=== PATIENT | female | born 1990 | race Caucasian/White ===

== ENCOUNTER 2019-07-03 21:52 | Emergency (ER) | payer SELFPAY ==
[2019-07-03 22:36] VITALS: TEMP 93
[2019-07-03 23:09] VITALS: O2SAT 98
[2019-07-04 00:17] VITALS: BP 127/90
--- NOTE | 2019-07-04 00:45 | ED.PDOC ---
History of Present Illness - General Chief Complaint: Back Pain or Injury Stated Complaint: RIGHT SIDED BACK PAIN Time Seen by Provider: 07/03/19 23:51 Source: patient Exam Limitations: no limitations - History of Present Illness Initial Comments: STARTED TONIGHT, R BACK (FLANK) PAIN. RADIATES LATERALLY. SHARP PAINS, INTERMITTENT LASTING 5 MIN ON, 5 MIN OFF. Severity: moderate Improving Factors: nothing Worsening Factors: nothing Associated Symptoms: denies symptoms Allergies/Adverse Reactions: Allergies NO KNOWN ALLERGY Allergy (Verified 06/09/16 18:46) Home Medications: Ambulatory Orders Sulfa/Trimeth 800/160 (Ds) Tab [Bactrim DS Tab] 1 unit PO BID #6 tab 07/04/19 Review of Systems - Review of Systems Constitutional: Denies: chills, fever EENTM: States: no symptoms reported Respiratory: States: no symptoms reported Cardiology: States: no symptoms reported Gastrointestinal/Abdominal: Denies: abdominal pain, nausea, vomiting Genitourinary: Denies: dysuria, frequency Musculoskeletal: States: no symptoms reported Skin: States: no symptoms reported Neurological: States: no symptoms reported Endocrine: States: no symptoms reported Hematologic/Lymphatic: States: no symptoms reported All other Systems: Reviewed and Negative Past Medical History (General) - Patient Medical History Hx Seizures: No Hx Stroke: No Hx Dementia: No Hx Asthma: No Hx of COPD: No Hx Cardiac Disorders: No Hx Congestive Heart Failure: No Hx Pacemaker: No Hx Hypertension: No Hx Thyroid Disease: No Hx Diabetes: No Hx Gastroesophageal Reflux: No Hx Renal Disease: Yes - stones Hx Cancer: No Hx of HIV: No Hx Hepatitis C: No Hx MRSA: No - Vaccination History Hx Tetanus, Diphtheria Vaccination: No Hx Influenza Vaccination: No Hx Pneumococcal Vaccination: No Immunizations Up to Date: No - Social History Hx Tobacco Use: No Hx Alcohol Use: Yes Hx Substance Use: No Hx Substance Use Treatment: No Hx Depression: No - Female History Patient is a Female of Child Bearing Age (10 -59 yrs old): Yes Patient : No - Triage Comment ED Triage Comment: states Dr Whitfield told her she needed her gallbladder removed, but can not afford it. Has pain to gall bladder area as similar in past Family Medical History - Family History Mother Family History: Unknown Living Status: Unknown Physical Exam - Physical Exam General Appearance: Alert, No apparent distress Eye Exam: bilateral normal Ears, Nose, Throat: hearing grossly normal, normal ENT inspection Neck: non-tender, full range of motion Respiratory: chest non-tender, lungs clear Cardiovascular/Chest: normal peripheral pulses, regular rate, rhythm Gastrointestinal/Abdominal: normal bowel sounds, non tender, soft, no organomegaly, no pulsatile mass Back Exam: CVA tenderness (R), CVA tenderness (L), other - BL CVA TTP, R GREATER THAN L. Extremity: normal range of motion, normal inspection Neurologic: alert, normal mood/affect Skin Exam: normal color, warm/dry Lymphatic: no adenopathy Progress - Progress Progress: 07/04/19 00:48 CBC AND CMP NEG. UA = UTI. MILD KETONES. RX'D BACTRIM. F/U W/ PCP. BACK IS NTTP. IT'S THE FLANKS (UTI). Departure - Departure Clinical Impression: Flank pain, acute UTI (urinary tract infection) Qualifiers: Urinary tract infection type: acute cystitis Hematuria presence: without hematuria Qualified Code(s): N30.00 - Acute cystitis without hematuria Disposition: Discharge to Home or Self Care Condition: Good Departure Forms: ED Discharge - Pt. Copy, Patient Portal Self Enrollment Instructions: Urinary Tract Infection, Adult (DC) Diet: resume usual diet Activity: increase activity as tolerated Referrals: Nelia Dukes NP [Primary Care Provider] - 1-2 Weeks Prescriptions: Sulfa/Trimeth 800/160 (Ds) Tab [Bactrim DS Tab] 1 unit PO BID #6 tab Home Medications: Ambulatory Orders Sulfa/Trimeth 800/160 (Ds) Tab [Bactrim DS Tab] 1 unit PO BID #6 tab 07/04/19
[2019-07-04] MEDS: SULFA/TRIMETH 800/160 (DS) TAB 1 EA TAB PO ONE (00:46)
== END 2019-07-04 00:51 | disposition home or self-care (01) ==
LOC: ER 21:52
DX: N30.00 Acute cystitis without hematuria (principal); Z87.442 Personal history of urinary calculi

== ENCOUNTER → 2019-07-26 | Outpatient (CLI) | payer OTHER ==
--- NOTE | 2019-07-26 15:09 | US ---
EXAM DESCRIPTION: Gall Bladder CLINICAL HISTORY: RIGHT UPPER QUAD PN COMPARISON: CT abdomen and pelvis September 25, 2011, ultrasound abdomen August 16, 2012 TECHNIQUE: Right upper quadrant ultrasound FINDINGS: Pancreas: Visualized portions of the pancreas are unremarkable. Bowel gas obscures some areas. Aorta/inferior vena cava: No aortic aneurysm. Normal inferior vena cava. Liver: The liver is homogeneous in texture with normal echogenicity of the hepatic parenchyma. No focal liver lesion or intrahepatic bile duct dilatation. No liver surface irregularity. Normal appearance of the portal vein and hepatic veins. Gallbladder: Gallbladder appears normal with no intraluminal stones or wall thickening. Common bile duct: Normal caliber measuring 4.2 mm. Right kidney: Renal length is 10.1 cm. Normal cortical echogenicity. Cortical thickness is normal. No hydronephrosis is seen. No renal mass or shadowing calculus. IMPRESSION: No diagnostic abnormality is identified on sonographic examination of the right upper quadrant. Electronically signed by: aNvi Berry MD 07/26/2019 3:08 PM CDT
== END ==
LOC: US 13:33
PROVIDERS: ATTEND Surgery
DX: R10.11 Right upper quadrant pain (principal)

== ENCOUNTER → 2019-08-09 | Outpatient (CLI) | payer OTHER ==
--- NOTE | 2019-08-10 08:36 | NM ---
EXAM DESCRIPTION: Hepatobiliary w/CCK: Nuclear Medicine. CLINICAL HISTORY: RUQ PAIN COMPARISON: Ultrasound gallbladder 07/26/2019. TECHNIQUE: Patient was given 8.2 mCi of technetium 99 M mebrofenin (Choletec) radiopharmaceutical IV. Anterior gamma camera images were obtained of the right upper quadrant at 5 minute intervals for one hour . The patient was then given 2.0 mcg CCK IV infusion over 30-minute interval. Gallbladder ejection fraction was evaluated by measuring diminishing radioactivity in the gallbladder, over 30 min interval. FINDINGS: After administration of radiopharmaceutical, there was complete visualization of the entire liver with no focal photopenic areas or abnormal uptake. Timely visualization of intrahepatic ducts, extrahepatic ducts, gallbladder, and small intestine. When IV infusion of CCK began, patient symptoms were duplicated. 67% decrease in the activity in the gallbladder at 10 minutes, 77% decrease in 20 minutes, and 74% decrease in 30 minutes. IMPRESSION: 1. No intrahepatic or extrahepatic biliary obstruction. Timely visualization of all anatomy. 2. Gallbladder ejection fraction is within the normal range. Electronically signed by: Giovani Hilario MD 08/10/2019 8:35 AM CDT
== END ==
LOC: NM 08:00
PROVIDERS: ATTEND Surgery
DX: R10.11 Right upper quadrant pain (principal)
CPT/HCPCS: 78227; A9537

== ENCOUNTER 2019-11-09 05:46 | Day surgery (SDC) | payer OTHER ==
[2019-11-09] MEDS ORDERED: LACTATED RINGERS 1,000 ML ONE ×2 (06:48→10:16)
[2019-11-09] MEDS ORDERED: SODIUM CHL 0.9% 100ML MINI-BAG 100 ML IVPB ONE (06:48)
[2019-11-09] MEDS ORDERED: ceFAZolin SODIUM 1 GM VIAL ONE (06:48)
[2019-11-09] MEDS ORDERED: PROPOFOL 200 MG/20 ML VIAL IV ONE (07:00)
[2019-11-09] MEDS ORDERED: SODIUM CHLORIDE 0.9% 50 ML VIAL ONE (07:00)
[2019-11-09] MEDS ORDERED: LIDOCAINE 1% 10 ML VIAL INJ ONE (07:00)
[2019-11-09] MEDS ORDERED: DEXAMETHASONE INJ 10 MG/ML VIAL ONE (07:00)
[2019-11-09] MEDS ORDERED: KETAMINE HCL 100 MG/ML VIAL ONE (07:29)
[2019-11-09] MEDS ORDERED: MIDAZOLAM INJ 2 MG/2 ML VIAL ONE (07:29)
[2019-11-09] MEDS ORDERED: fentaNYL CITRATE INJ 50 MCG/ML AMP ONE (07:29)
[2019-11-09] MEDS ORDERED: DEXMEDETOMIDINE HCL 200 MCG/2 ML INJ IV ONE (07:29)
[2019-11-09] MEDS ORDERED: ROCURONIUM BROMIDE 10 MG/ML VIAL ONE (07:30)
[2019-11-09] MEDS ORDERED: HEPARIN SODIUM (PORCINE) 10,000 UNITS/ML VIAL ONE (07:31)
[2019-11-09] MEDS ORDERED: BUPIVACAINE 0.25% W/EPI 50 ML VIAL INJ ONE (07:31)
[2019-11-09] MEDS ORDERED: SCOPOLAMINE PATCH 1.5MG 1 EA TD ONE ×2 (07:34→07:35)
[2019-11-09] MEDS ORDERED: LACTATED RINGERS 1,000 ML IVS ONE ×2 (07:45→09:04)
[2019-11-09] MEDS ORDERED: LIDOCAINE 1% 50 ML VIAL INJ ONE ×2 (07:57→08:02)
[2019-11-09] MEDS ORDERED: HEPARIN SODIUM (PORCINE) 10,000 UNITS/ML VIAL IRRIG ONE ×2 (07:57→08:02)
[2019-11-09] MEDS ORDERED: BUPIVACAINE 0.25% W/EPI 50 ML VIAL SUBCU ONE ×2 (07:57→08:02)
[2019-11-09] MEDS ORDERED: IOPROMIDE INJ 300 MG/ML 50 ML INJ ONE ×2 (07:58→08:02)
[2019-11-09] MEDS ORDERED: HYDROmorphone HCL INJ 2 MG/ML VIAL ONE ×2 (08:52→10:14)
[2019-11-09] MEDS ORDERED: SUGAMMADEX SODIUM 200 MG/2 ML VIAL IV ONE (09:19)
[2019-11-09] MEDS ORDERED: BACITRACIN 0.9 GM UD PCKT ONE (09:25)
--- NOTE | 2019-11-09 09:25 | RAD ---
EXAM DESCRIPTION: Fluoroscopy Up to 1Hr CLINICAL HISTORY: 28 years Female, IOC COMPARISON: None. TECHNIQUE: Two images from an operative C-arm were submitted. Total fluoroscopic time was 21 seconds. A fluoroscopic dose from the unit utilized is not available for reporting. FINDINGS: Two operative views demonstrate a small normal caliber biliary ductal system with intrahepatic filling. Good flow of contrast into the common duct and duodenum is evident. No filling defects noted. IMPRESSION: Negative operative cholangiogram two views. Electronically signed by: Moses Cheng MD 11/09/2019 9:24 AM [employer]
[2019-11-09] MEDS ORDERED: ONDANSETRON INJ 4 MG/2 ML VIAL ONE (10:12)
[2019-11-09] MEDS ORDERED: ONDANSETRON INJ 4 MG/2 ML VIAL IV ONE (10:15)
--- NOTE | 2019-11-09 10:17 | OP ---
DATE OF PROCEDURE: 11/09/19 PREOPERATIVE DIAGNOSIS: 1. Right upper quadrant abdominal pain that is repeated by HIDA scan. 2. Fatty food intolerance. 3. A non-healing, raised verrucous lesion on the right lateral ankle. POSTOPERATIVE DIAGNOSIS: 1. Right upper quadrant abdominal pain that is repeated by HIDA scan. 2. Fatty food intolerance. 3. A non-healing, raised verrucous lesion on the right lateral ankle. 4. Chronic cholecystitis and cholesterolosis. PROCEDURE: 1. Laparoscopic cholecystectomy with intraoperative cholangiography. 2. Excision of lesion, right ankle. SURGEON: Omer Whitfield MD. CLINICAL SOCIAL WORK THERAPIST: None. ANESTHESIA: Local infiltration of 0.25% Marcaine with epinephrine and general endotracheal anesthesia. INDICATION: The patient is a 28-year-old female who has had for some time right upper quadrant pain associated with fatty meals. She had multiple ultrasounds never showing pathology, so she underwent a HIDA scan with identical repetition of her symptoms. She also had this non-healing, raised lesion that caught on her clothes on her right lateral ankle. The patient was brought to the Surgical Suite today for cholecystectomy and excision of the lesion after the risks, benefits and alternatives to the procedure were discussed and accepted. FINDINGS: The gallbladder wall was somewhat thickened, but there were no adhesions. Opening the gallbladder revealed cholesterolosis of the wall. Intraoperative cholangiography revealed free flow into the duodenum with no filling defects or strictures identified. DESCRIPTION OF PROCEDURE: After adequate general endotracheal anesthesia was obtained in the supine position, the patient was prepped and draped in the usual sterile manner. Surgical time-out was taken. The infraumbilical area was infiltrated with local anesthesia. A curvilinear incision was fashioned and carried down through the subcutaneous tissue to the midline fascia. Traction sutures were placed on either side of the midline. A small incision was made in the midline fascia and the peritoneum was opened bluntly. Tino trocar was introduced under direct vision into the abdominal cavity and fixed in place with the 20 mL balloon. CO2 was then insufflated until a pressure of 12 mmHg was reached and the abdomen was tympanitic in all four quadrants. When this was done, the laparoscope was introduced. The abdomen was inspected with the previously noted findings. The patient was then placed in reverse Trendelenburg position and turned to the left side. The upper abdominal ports were placed under direct vision. The gallbladder was grasped, retracted anteriorly and laterally. The neck of the gallbladder was retracted laterally. The triangle of Calot was then explored with the cystic duct and cystic artery identified and isolated. The cystic duct was hemoclipped once proximally. The cholangiogram catheter was introduced through a separate stab wound in the right upper quadrant. A small incision was made in the cystic duct and the cholangiogram catheter was introduced under direct vision into the abdominal cavity and fixed in place with the clips. Cholangiograms were then taken which revealed free flow into the duodenum with no filling defects or strictures. When this was done, the cystic duct catheter was removed. The cystic duct was hemoclipped three times distally and divided between the hemoclips. Three different vessels were clipped and divided. The gallbladder was then dissected free from the gallbladder bed of the liver using electrocautery. The gallbladder was removed from the infraumbilical port site in the usual manner under direct vision. When this was done, the subhepatic space and subphrenic space were irrigated copiously with saline. The ludmila hepatis was inspected and no bleeding or bile leak was noted. The effluent was clear. The upper abdominal ports were removed under direct vision and good hemostasis was noted. At this point, the CO2, the laparoscope and the infraumbilical port were removed. The infraumbilical port site fascia was approximated with a single [id number] suture of 0 Vicryl. Subcutaneous tissue was irrigated with saline. Skin edges were approximated with 4-0 Vicryl subcuticular sutures, benzoin and Steri- Strips. At this point, the right ankle lesion was prepped with Betadine, infiltrated with local anesthesia and excised sharply. Hemostasis was obtained with electrocautery and dressed with triple antibiotic ointment and a band-aid. The patient tolerated the procedure well. Estimated blood loss was less than 25 mL. All sponge, needle and instrument counts were correct. [id number]
[2019-11-09] MEDS ORDERED: HYDROmorphone HCL INJ 2 MG/ML VIAL IV ONE (10:22)
[2019-11-09] MEDS ORDERED: METOCLOPRAMIDE HCL INJ 10 MG/2 ML VIAL IV ONE (11:00)
[2019-11-09] MEDS ORDERED: METOCLOPRAMIDE HCL INJ 10 MG/2 ML VIAL ONE (11:01)
[2019-11-09 13:16] VITALS: BP 117/71; TEMP 97.1; O2SAT 91
== END 2019-11-09 12:25 | disposition home or self-care (01) ==
LOC: AMB 05:46
PROVIDERS: ATTEND Surgery
DX: K81.1 Chronic cholecystitis (principal); K90.49 Malabsorption due to intolerance, not elsewhere classified; B07.9 Viral wart, unspecified
CPT/HCPCS: 00790; 11420; 36415; 47563; 76000; 80048; 81025; 85025; A4216; J0690; J1100; J1170; J1644; J2250; J2405; J2765; J3010; J3490; J7050; J7120